=== PATIENT | female | born 2000 | race Caucasian/White ===

== ENCOUNTER 2024-06-18 12:00 | Outpatient (REF) | payer BC, SELFPAY ==
--- NOTE | ~2024-06-18 | US_ITS ---
EXAMINATION: US PELVIS COMPLETE CLINICAL INFORMATION: ACUTE ONSET RLQ PAIN. COMPARISON: None TECHNIQUE: Transabdominal and transvaginal images of the pelvis were obtained. FINDINGS: UTERUS: Retroverted. Normal size and contour, measuring 7.4 x 3.5 x 5.2 cm (cervix to fundus x AP x transverse). Uniform, homogeneous endometrium measures 0.6 cm in width. IUD properly positioned. RIGHT OVARY: Normal size and echogenicity measuring 3.1 x 2.6 x 3.1 cm, volume 13 mL. Multiple subcentimeter follicles arranged around the periphery of the ovary. LEFT OVARY: Normal size and echogenicity measuring 4.2 x 2.5 x 2.1 cm, volume 11 mL. Multiple subcentimeter follicles arranged around the periphery of the ovary. FREE FLUID: No pelvic free fluid. US/US pelvic and transvaginal IMPRESSION: 1. Multiple subcentimeter follicles arranged around the periphery of the ovaries. This can be seen in the setting of polycystic ovarian syndrome. 2. IUD in appropriate position. Electronically signed by: Anita Paez DO 06/18/2024 04:56 PM EDT
== END 2024-06-18 12:01 | disposition home or self-care (01) ==
LOC: HO.UMASIMG 12:00
PROVIDERS: Visit Provider Pediatrics
DX: R10.31 Right lower quadrant pain (principal)
CPT/HCPCS: 76830; 76856